=== PATIENT | female | born 1970 | race Caucasian/White ===

== ENCOUNTER → 2017-02-10 | Outpatient (CLI) | payer BC ==
[~2017-02-10] MED LIST: MULT1TAB8 PO; TAMO20TA4 PO
--- NOTE | 2017-02-10 12:48 | REPMRS ---
Patient History The patient states she had a clinical breast exam in 01/25 Patient has history of cancer in the right breast at age 37. Family history of breast cancer in 3 paternal cousins at age 40. Malignant lumpectomy of the right breast, 2007. Benign excisional biopsy of the right breast, 1997. Took hormonal contraceptives for 4 years. Taking tamoxifen for 7 years 6 months. Digital Woman Screen Mammo: February 10, 2017 - Exam #: [id number] Bilateral CC and MLO view(s) were taken. Technologist: Cassie Ferrari, Technologist Prior study comparison: December 28, 2015, digital woman screen mammo performed at [facility]. December 25, 2014, digital woman screen mammo performed at [facility]. FINDINGS: There are scattered fibroglandular densities. There is no evidence of cancer on this mammogram. No significant changes when compared with prior studies. ASSESSMENT: BI-RADS/ACR category 2 mammogram. Benign finding(s). Recommendation Routine screening mammogram of both breasts in 1 year (for women over age 40). This mammogram was interpreted with the aid of an FDA-approved computer-aided dectection system. Electronically Signed By: Andi Webber MD 02/10/17 [id number]
== END ==
LOC: M WHC 10:29
PROVIDERS: ATTEND Nurse Practitioner Family
DX: Z12.31 Encounter for screening mammogram for malignant neoplasm of breast (principal); N64.9 Disorder of breast, unspecified; Z85.3 Personal history of malignant neoplasm of breast; Z80.3 Family history of malignant neoplasm of breast; Z79.3 Long term (current) use of hormonal contraceptives; Z79.818 Long term (current) use of other agents affecting estrogen receptors and estrogen levels

== ENCOUNTER → 2018-04-11 | Outpatient (REF) | payer BC ==
[2018-04-13 14:15] LABS: HPV HYBRID CAPTURE II Negative (Negative)
== END ==
LOC: M SFHCWAGY 14:06
DX: Z01.419 Encounter for gynecological examination (general) (routine) without abnormal findings (principal); Z11.51 Encounter for screening for human papillomavirus (HPV)

== ENCOUNTER → 2019-02-15 | Outpatient (CLI) | payer BC ==
[~2019-02-15] MED LIST changes: -TAMO20TA4 PO; +TAMO20TA8 PO
--- NOTE | 2019-02-15 11:42 | REPMRS ---
Patient History The patient states she had a clinical breast exam in 12/2018. Patient has history of cancer in the right breast at age 37, had previous chest radiation therapy at age 37, and had previous chemotherapy at age 37. Patient had tested negative for BRCA1. Family history of breast cancer at age 40 in paternal cousin, breast cancer at age 40 in paternal cousin, breast cancer at age 40 in paternal cousin, prostate cancer in paternal uncle. Malignant lumpectomy of the right breast, 2007. Benign excisional biopsy of the right breast, 1997. Took hormonal contraceptives for 4 years. Took tamoxifen for 10 years 9 months. 3D TOMOSYNTHESIS WAS PERFORMED. Digital Woman Screen Mammo: February 15, 2019 - Exam #: [id number] Bilateral CC and MLO view(s) were taken. Technologist: Csasie Ferrari, Technologist Prior study comparison: February 14, 2018, digital woman screen mammo performed at [facility]. February 10, 2017, digital woman screen mammo performed at [facility]. FINDINGS: The breast tissue is heterogeneously dense. This may lower the sensitivity of mammography. There is a fairly symmetric fibroglandular pattern in both breasts. There has been no interval development of masses, areas of architectural distortion or clusters of microcalcifications typical of malignancy. No significant changes when compared with prior studies. Assessment: BI-RADS/ACR category 2 mammogram. Benign Findings. Recommendation Routine screening mammogram of both breasts in 1 year (for women over age 40). This mammogram was interpreted with the aid of an FDA-approved computer-aided dectection system. Electronically Signed By: Andi Webber MD 02/15/19 [id number]
== END ==
LOC: M WHC 09:17
PROVIDERS: ATTEND Internal Medicine Hematology & Oncology
DX: Z12.31 Encounter for screening mammogram for malignant neoplasm of breast (principal); Z85.3 Personal history of malignant neoplasm of breast; Z92.3 Personal history of irradiation; Z92.21 Personal history of antineoplastic chemotherapy; Z92.23 Personal history of estrogen therapy; Z92.0 Personal history of contraception; Z86.018 Personal history of other benign neoplasm

== ENCOUNTER 2019-06-28 12:06 | Day surgery (SDC) | payer BC ==
[~2019-06-28] VITALS: Ht 152.4 cm; Wt 60.3 kg
[~2019-06-28 12:06] MED LIST changes: +NS 1,000 ML IV ONE; +OMEG10002 PO
[2019-06-28] MEDS ORDERED: LIDOCAINE 2% INJ 100 MG/5 ML SDV (FOR ANES.) As Ordered ONE (12:58)
[2019-06-28] MEDS ORDERED: PROPOFOL 200 MG/20 ML VIAL As Ordered ONE (12:58)
--- NOTE | 2019-06-28 13:22 | ROOR ---
Patient Name: Brooke Gallegos Procedure Date: 06/28/2019 12:53 PM Date of : 1970 Age: 49 Room: [facility] Gender: Female Note Status: Finalized Procedure: Total Colonoscopy to Cecum + Cold Snare Polypectomy + Hemoclips + ileoscopy Indications: Screening for colorectal malignant neoplasm Providers: Zane Prather MD Referring MD: Jeanna HUFF MD Requesting Provider: Medicines: Monitored Anesthesia Care Complications: No immediate complications. Procedure: Pre-Anesthesia Assessment: - The heart rate, respiratory rate, oxygen saturations, blood pressure, adequacy of pulmonary ventilation, and response to care were monitored throughout the procedure. The Colonoscope was introduced through the anus and advanced to the cecum, identified by appendiceal orifice and ileocecal valve. The colonoscopy was performed without difficulty. The patient tolerated the procedure well. The quality of the bowel preparation was excellent. Findings: The perianal and digital rectal examinations were normal. Non-bleeding internal hemorrhoids were found during retroflexion. The hemorrhoids were small and Grade I (internal hemorrhoids that do not prolapse). A small polyp was found at 20 cm proximal to the anus. The polyp was sessile. The polyp was removed with a cold snare. Resection and retrieval were complete. To prevent bleeding after the polypectomy, one hemostatic clip was successfully placed (MR conditional). There was no bleeding at the end of the procedure. The terminal ileum appeared normal. The exam was otherwise without abnormality on direct and retroflexion views. Impression: - Non-bleeding internal hemorrhoids. - One small polyp at 20 cm proximal to the anus, removed with a cold snare. Resected and retrieved. Clip (MR conditional) was placed. - The examined portion of the ileum was normal. - The examination was otherwise normal on direct and retroflexion views. - The exam was otherwise normal to the cecum. Recommendation: - Patient has a contact number available for emergencies. The signs and symptoms of potential delayed complications were discussed with the patient. Return to normal activities tomorrow. Written discharge instructions were provided to the patient. - High fiber diet. - Discharge patient to home. - Continue present medications. - Await pathology results. - Telephone GI clinic for pathology results in 1 week. - Return to referring physician. - Repeat colonoscopy for surveillance based on pathology results. - The findings and recommendations were discussed with the patient's family. Zane Prather MD Zane Prather MD 06/28/2019 1:22:30 PM Electronically signed by Zane Prather MD Number of Addenda: 0 Note Initiated On: 06/28/2019 12:53 PM Estimated Blood Loss: Estimated blood loss: none.
[2019-06-28 13:58] VITALS: BP 100/70
== END 2019-06-28 14:00 | disposition home or self-care (01) ==
LOC: M OPP 12:06
PROVIDERS: ATTEND Internal Medicine Gastroenterology
DX: Z12.11 Encounter for screening for malignant neoplasm of colon (principal); K64.0 First degree hemorrhoids; K63.5 Polyp of colon; Z91.048 Other nonmedicinal substance allergy status; Z88.5 Allergy status to narcotic agent; Z85.3 Personal history of malignant neoplasm of breast; Z92.21 Personal history of antineoplastic chemotherapy; Z92.3 Personal history of irradiation

== ENCOUNTER → 2020-04-14 | Outpatient (REF) | payer BC ==
[~2020-04-14] MED LIST changes: -NS 1,000 ML IV ONE; +ULTR5TAB PO
== END ==
LOC: M SFHCWAGY 09:44
PROVIDERS: ATTEND Nurse Practitioner Women's Health
DX: Z12.4 Encounter for screening for malignant neoplasm of cervix (principal); R87.610 Atypical squamous cells of undetermined significance on cytologic smear of cervix (ASC-US)
CPT/HCPCS: 87624; G0123

== ENCOUNTER → 2020-04-14 | Outpatient (CLI) | payer BC ==
--- NOTE | 2020-05-06 10:55 | REPMRS ---
Patient History The patient states she had a clinical breast exam in 04/2020. Patient has history of cancer in the right breast at age 37, had previous chest radiation therapy at age 37, and had previous chemotherapy at age 37. Patient had tested negative for BRCA1. Family history of breast cancer at age 40 in paternal cousin, breast cancer at age 40 in paternal cousin, breast cancer at age 40 in paternal cousin, prostate cancer in paternal uncle. Malignant lumpectomy of the right breast, 2007. Benign excisional biopsy of the right breast, 1997. Took hormonal contraceptives for 4 years. Took tamoxifen for 10 years 9 months. Digital Woman Screen Mammo: April 14, 2020 - Exam #: [id number] Bilateral CC and MLO view(s) were taken. Technologist: Cassie Ferrari, Technologist Prior study comparison: February 15, 2019, bilateral digital woman screen mammo performed at [facility]. February 14, 2018, digital woman screen mammo performed at [facility]. February 10, 2017, digital woman screen mammo performed at [facility]. FINDINGS: There are scattered fibroglandular densities. The Volpara volumetric breast density category is:B. There are stable post treatment changes in the right breast. There has been no change in the appearance of the mammogram from the prior studies. There is a mild amount of scattered fibroglandular density which is fairly symmetric. There is no interval development of dominant mass, architectural distortion, or grouped microcalcification suggestive of malignancy. 3-D tomosynthesis shows no additional findings. Assessment: BI-RADS/ACR category 2 mammogram. Benign Findings. Recommendation Routine screening mammogram of both breasts in 1 year (for women over age 40). This mammogram was interpreted with the aid of an FDA-approved computer-aided dectection system. Electronically Signed By: Bartolome Wolf MD 05/06/20 [id number]
== END ==
LOC: M WHC 16:52
PROVIDERS: ATTEND Nurse Practitioner Women's Health
DX: Z12.31 Encounter for screening mammogram for malignant neoplasm of breast (principal)

== ENCOUNTER → 2021-05-03 | Outpatient (CLI) | payer BC ==
[~2021-05-03] MED LIST changes: +ZYRTTAB8 PO
--- NOTE | 2021-05-03 10:53 | REPMRS ---
Patient History The patient states she had a clinical breast exam in March 2021. Patient had tested negative for BRCA1. Family history of breast cancer at age 40 in paternal cousin, breast cancer at age 40 in paternal cousin, breast cancer at age 40 in paternal cousin, prostate cancer in paternal uncle. Malignant lumpectomy of the right breast, 2007. Benign excisional biopsy of the right breast, 1997. Took hormonal contraceptives for 4 years. Took tamoxifen for 10 years 9 months. Tomosynthesis is performed. Volpara breast density is c. No breast complaints today Patient signed the MRS sheet 1st covid vaccine 10/22/20-left arm-Moderna 2nd covid vaccine 11/19/20-left arm Patient states she has had a intentional 20lb weight loss in the last year Priors on PACS Patient Identification Verified Patient denied Digital Woman Screen Mammo: May 03, 2021 - Exam #: [id number] Bilateral CC and MLO view(s) were taken. Technologist: Celestina Benson Technologist Prior study comparison: April 14, 2020, bilateral digital woman screen mammo performed at [facility]. February 15, 2019, bilateral digital woman screen mammo performed at [facility]. FINDINGS: The breast tissue is heterogeneously dense. This may lower the sensitivity of mammography. There has been no change in the appearance of the mammogram from the prior studies. There is a moderate amount of residual fibroglandular tissue which is fairly symmetric. There is no interval development of dominant mass, areas of architectural distortion, or clustered microcalcification typical of malignancy. Metallic clips are again seen in the right axilla, along with skin deformity.] No significant changes when compared with prior studies. Assessment: BI-RADS/ACR category 1 mammogram. Negative Mammogram. Recommendation Routine screening mammogram in 1 year (for women over age 40). This mammogram was interpreted with the aid of an FDA-approved computer-aided dectection system. Electronically Signed By: Andi Webber MD 05/03/21 [id number]
== END ==
LOC: M WHC 09:52
PROVIDERS: ATTEND Internal Medicine Medical Oncology
DX: Z12.31 Encounter for screening mammogram for malignant neoplasm of breast (principal); Z80.3 Family history of malignant neoplasm of breast; Z85.3 Personal history of malignant neoplasm of breast

== ENCOUNTER → 2021-05-28 | Outpatient (REF) | payer BC | LOC: M LAB REF 17:23 | PROVIDERS: ATTEND Physician Assistant | DX: D48.5 Neoplasm of uncertain behavior of skin (principal) ==

== ENCOUNTER → 2022-04-04 | Outpatient (CLI) | payer BC | LOC: M WHC 07:32 | PROVIDERS: ATTEND Internal Medicine | DX: N95.0 Postmenopausal bleeding (principal) ==

== ENCOUNTER → 2022-05-04 | Outpatient (CLI) | payer BC | LOC: M WHC 09:02 | PROVIDERS: ATTEND Internal Medicine | DX: Z12.31 Encounter for screening mammogram for malignant neoplasm of breast (principal) ==